=== PATIENT | female | born 1970 | race African-American/Black ===

== ENCOUNTER 2020-11-03 22:00 | Emergency (ER) | payer SELFPAY ==
[~2020-11-03] VITALS: Ht 157.5 cm; Wt 65.0 kg
[2020-11-03] MEDS ORDERED: FLUORESCEIN SODIUM 1MG/STRIP BOTHEYE ONE (22:30)
[2020-11-03] MEDS ORDERED: SODIUM CHLORIDE 0.9% IRRIG SOLUTION 1000ML IR NR (22:30)
[2020-11-03] MEDS ORDERED: TETRACAINE 0.5% OPHTH DROPS 4ML BOTHEYE ONE (22:30)
[2020-11-03 23:40] VITALS: BP 145/80
[2020-11-03] MEDS ORDERED: TOBR5DRO47 EACHEYE (23:41)
== END 2020-11-03 23:50 | disposition home or self-care (01) ==
LOC: ER 23:25
DX: S00.252A Superficial foreign body of left eyelid and periocular area, initial encounter (principal); S00.251A Superficial foreign body of right eyelid and periocular area, initial encounter; J45.909 Unspecified asthma, uncomplicated; Z90.710 Acquired absence of both cervix and uterus; X58.XXXA Exposure to other specified factors, initial encounter; Y93.H2 Activity, gardening and landscaping; Y92.017 Garden or yard in single-family (private) house as the place of occurrence of the external cause
CPT/HCPCS: 99284; J7040